=== PATIENT | female | born 1985 | race Caucasian/White ===

== ENCOUNTER 2019-09-30 22:38 | Emergency (ER) | payer SELFPAY ==
[~2019-09-30] VITALS: Ht 162.6 cm; Wt 110.0 kg
[2019-09-30] MEDS ORDERED: PRILOSEC OTC20 MG PO (23:04)
[2019-09-30] MEDS ORDERED: CARAFATE1 GM PO (23:05)
[2019-09-30] MEDS ORDERED: PHENERGAN25 MG/TAB PO (23:05)
[2019-09-30] MEDS ORDERED: NORCO1 TA2 PO (23:05)
[2019-09-30] MEDS ORDERED: ORPHENADRINE C100 M1 PO (23:06)
[2019-09-30] MEDS ORDERED: WELLBUTRIN100 M2 PO (23:06)
[2019-09-30 23:54] VITALS: BP 145/74
[2019-10-01] MEDS ORDERED: STERAPRED DS10 MG PO (00:09)
== END 2019-10-01 00:20 | disposition home or self-care (01) | DRG 552 ==
LOC: ED 22:38
DX: M50.121 Cervical disc disorder at C4-C5 level with radiculopathy (principal); E11.9 Type 2 diabetes mellitus without complications; F17.210 Nicotine dependence, cigarettes, uncomplicated